=== PATIENT | female | born 1935 | race Caucasian/White ===

== ENCOUNTER 2022-07-02 17:26 | Emergency (ER) | payer MEDICARE, OTHER ==
[~2022-07-02] VITALS: Ht 167.6 cm; Wt 79.2 kg
[~2022-07-02 17:26] MED LIST: ASPIR 8181 MG PO; ATENOLOL25 MG PO; CALCIUM 600 +1 EA11 PO; CITALOPRAM HBR20 MG PO; FENOFIBRATE145 MG PO; HYDROCHLOROTHIA25 MG PO; HYDROCODON-ACE1 EA11 PO; OMEPRAZOLE20 M1 PO; OMEPRAZOLE40 MG PO; PRAVASTATIN SOD40 MG PO
--- OUTSIDE RECORDS SUMMARY | 2022-07-02 17:28 | XMS ---
PreManage Notification: JOAN MCINTOSH Security Tavern Keeper Events No recent Security Events currently on file CRITERIA MET - ALANNA CARE PROVIDERS -David- Dentist: Splicing Machine Operator Automatic [facility] PHONE: [phone] [facility] Current PHONE: Unknown Michelle has no Care Guidelines for this patient. Patricia VISIT COUNT (12 MO.) Lien Rios TOTAL 1 NOTE: Visits indicate total known visits. ED/UCC VISIT TRACKING (12 MO.) 07/02/2022 17:27 JOS Cruz OR TYPE: Emergency COMPLAINT: - VOMITING INPATIENT VISIT TRACKING (12 MO.) No inpatient visits to display in this time frame [email or web address]
[2022-07-02] MEDS ORDERED: AMITRIPTYLINE H10 MG PO (20:28)
[2022-07-02] MEDS ORDERED: MAGNESIUM OXID400 M1 PO (20:29)
[2022-07-02] MEDS ORDERED: MULTI VITAMIN1 EACH PO (20:29)
[2022-07-02] MEDS ORDERED: PRAVASTATIN SOD40 MG PO (20:30)
[2022-07-02] MEDS ORDERED: VITAMIN C500 M4 PO (20:30)
[2022-07-02] MEDS ORDERED: PEPCID20 MG PO (22:16)
--- NOTE | 2022-07-03 21:26 | EKG ---
[facility] [address] [place] [address] Signed Normal sinus rhythm Possible Left atrial enlargement Left axis deviation Left ventricular hypertrophy with QRS widening ( [place] product ) Anteroseptal infarct (cited on or before 02-MAR-2016) Abnormal ECG When compared with ECG of 02-MAR-2016 15:17, Questionable change in initial forces of Anterior leads Non-specific change in ST segment in Lateral leads QT has lengthened Confirmed by David Ortega MD () on 07/03/2022 9:25:47 PM Electronically Signed By: DAVID ORTEGA MD 07/03/222125 PATIENT NAME: JOAN MCINTOSH Electrocardiogram DATE OF : 39 PHYSICIAN: DAVID ORTEGA MD REPORT #: [id number] REPORT IS CONFIDENTIAL AND NOT TO BE RELEASED WITHOUT AUTHORIZATION
== END 2022-07-02 22:33 | disposition home or self-care (01) ==
LOC: ED 17:26
DX: K21.9 Gastro-esophageal reflux disease without esophagitis (principal); E86.0 Dehydration; K44.9 Diaphragmatic hernia without obstruction or gangrene; Z79.899 Other long term (current) drug therapy
CPT/HCPCS: 36415; 71045; 80053; 81001; 83690; 83880; 84484; 85025; 87088; 93005; 93010; 96374; 99284-25; J7121

== ENCOUNTER 2022-10-21 10:44 | Day surgery (SDC) | payer MEDICARE, OTHER ==
[~2022-10-21] VITALS: Ht 162.6 cm; Wt 82.0 kg
[~2022-10-21 10:44] MED LIST changes: +ABILIFY2 MG PO; +AMITRIPTYLINE H10 MG PO; +MAGNESIUM OXID400 M1 PO; +MULTI VITAMIN1 EACH PO; +ONDANSETRON ODT8 MG PO; +PEPCID20 MG PO; +VITAMIN C500 M4 PO
[2022-10-21 11:07] VITALS: BP 132/63
[2022-10-21] MEDS ORDERED: ALPRAZOLAM0.25 MG PO (11:13)
--- NOTE | 2022-10-21 12:09 | NUR ---
10/21/22 1208 Sheets,Leilani 1203 PT ARRIVED TO PACU ON 2L VIA NC, PT WAKES AND DENIES CONCERNS. PT EASILY FALLS BACK TO SLEEP. VSS.
[2022-10-21 12:38] VITALS: BP 124/70
--- NOTE | 2022-10-27 10:30 | OR ---
[facility] [address], [place] [address] Signed DATE OF OPERATION: 10/21/2022 SURGEON: Jo Caraballo MD PREOPERATIVE DIAGNOSIS: Upper abdominal pain, longstanding gastroesophageal reflux. POSTOPERATIVE DIAGNOSES: 1. Retained gastric contents. 2. Hiatal hernia without esophagitis. Otherwise normal-appearing stomach. No evidence of gastric outlet obstruction. PROCEDURE: Esophagogastroduodenoscopy with biopsy. ANESTHESIA: Intravenous sedation; fentanyl 100 mcg and Versed 2 mg. INDICATION: This 87-year-old white woman is a patient of Dr. Osborn. She was referred for upper endoscopy on the basis of long-standing reflux disease which recently has been poorly controlled. Clinical history suggests biliary disease and on that basis, I ordered a gallbladder ultrasound, which showed gallstones. Nevertheless, she is here to undergo upper endoscopy to confirm or refute a peptic source of her symptoms. The risk of bleeding, infection, and perforation were reviewed with her. She understands and wished to proceed. FINDINGS: There was food retained in the stomach. There was a hiatal hernia but there was no sign of gastric outlet obstruction. The duodenum was normal. There was no sign of ulceration. There was no evidence of esophagitis or Peterson's epithelium. The source of her gastric content retention is uncertain, possibly some level of gastroparesis, though she is not diabetic. DESCRIPTION OF PROCEDURE: The patient was brought to the endoscopy suite and placed in the lateral decubitus position, underwent topical lidocaine hypopharyngeal anesthesia. She was given intravenous sedation with all due care given her advanced age. A bite block was placed. An Olympus video upper endoscope was passed in the hypopharynx. The vocal cords were normal. Scope was advanced throughout the esophagus, which was normal. Scope passed Electronically Signed By: JO CARABALLO MD 10/27/22 1030 PATIENT NAME: JOAN MCINTOSH OPERATIVE REPORT DATE OF : 39 REPORT #: [id number] PHYSICIAN: JO CARABALLO MD PCP: PRAFUL OSBORN MD REPORT IS CONFIDENTIAL AND NOT TO BE RELEASED WITHOUT AUTHORIZATION [facility] [address], [place] [address] Signed into the stomach, which was insufflated with air with some retained food within the stomach. It was challenging to ultimately identify the pylorus, but it was identified and showed no sign of stricture, neoplasm or gastric outlet obstruction in any way. The duodenum was intubated and some mucosal hypertrophy was noted in the duodenal bulb. There was no sign of ulcer, this area was biopsied. Additional biopsies were also taken of the duodenum. The scope was withdrawn and biopsies taken of the proximal stomach on retroflexed view. She had a hiatal hernia. CLOtest biopsies were obtained as well. Scope was withdrawn to the distal esophagus where biopsies were obtained. The esophagus appeared normal. Further withdrawal allowed for removal of the scope. The patient was taken to recovery room in good condition. CONCLUDING DIAGNOSIS: Retained food in the stomach suggestive though not diagnostic of variable degree of gastric dysmotility. Hiatal hernia without associated esophagitis is noted. It is very likely that her actual symptoms of late are related to symptomatic gallstones rather than reflux related to hiatal hernia. PLAN: We will organize to see her back promptly and offer for consideration of cholecystectomy preferred by a laparoscopic approach. MD MURPHY Cruz/DARBY /[id number] cc: Dr. Osborn Copies: ~ Electronically Signed By: JO CARABALLO MD 10/27/22 1030 PATIENT NAME: JOAN MCINTOSH OPERATIVE REPORT DATE OF : 39 REPORT #: [id number] PHYSICIAN: JO CARABALLO MD PCP: PRAFUL OSBORN MD REPORT IS CONFIDENTIAL AND NOT TO BE RELEASED WITHOUT AUTHORIZATION
== END 2022-10-21 12:53 | disposition home or self-care (01) ==
LOC: OPS 10:44 → DS 10:51 → OPS 12:00 → DS 12:00 → OPS 12:53
PROVIDERS: ATTEND Surgery
PROC: 0DB68ZX Excision of Stomach, Via Natural or Artificial Opening Endoscopic, Diagnostic (ICD-10-PCS; 2022-10-21)
PROC: 0DB38ZX Excision of Lower Esophagus, Via Natural or Artificial Opening Endoscopic, Diagnostic (ICD-10-PCS; 2022-10-21)
PROC: 0DB98ZX Excision of Duodenum, Via Natural or Artificial Opening Endoscopic, Diagnostic (ICD-10-PCS; principal; 2022-10-21 12:00)
DX: K21.9 Gastro-esophageal reflux disease without esophagitis (principal); K44.9 Diaphragmatic hernia without obstruction or gangrene; K29.50 Unspecified chronic gastritis without bleeding; F32.A Depression, unspecified; R63.4 Abnormal weight loss; Z79.899 Other long term (current) drug therapy
CPT/HCPCS: 88305; 99153; G0500; J0690; J2250; J3010

== ENCOUNTER 2022-11-09 05:37 | Day surgery (SDC) | payer MEDICARE, OTHER ==
[2022-11-04 14:19] VITALS: BP 131/80
[~2022-11-09] VITALS: Ht 162.6 cm; Wt 81.8 kg
[~2022-11-09 05:37] MED LIST changes: +ALPRAZOLAM0.25 MG PO; +FAMOTIDINE20 MG PO
[2022-11-09 05:59] VITALS: BP 122/73
--- NOTE | 2022-11-09 09:43 | NUR ---
11/09/22 0943 Lila Wilburn 0936 PT TO PACU ORAL AIRWAY IN PLACE. BREATHS REGULAR AND UNLABORED. O2 VIA MASK AT 6L. FOGGING NOTED IN MASK.
[2022-11-09] MEDS ORDERED: IBUPROFEN600 MG PO (09:48)
[2022-11-09] MEDS ORDERED: OXYCODON-ACETA1 EAC2 PO (09:48)
[2022-11-09] MEDS ORDERED: ACETAMINOPHEN500 MG PO (09:49)
[2022-11-09 10:35] VITALS: BP 145/57
--- NOTE | 2022-11-09 10:35 | NUR ---
PT ARRIVES FROM PACU UNIT VIA STRETCHER. PT IS GRIMACING IN PAIN AT THIS TIME W/REPORT OF PAIN 6/10, W/TOLERABLE LEVEL 4/10. X5 LAP SITES HAVE SMALL AMOUNT OF SS DRAINAGE. PT IS A&O X4 AND ASKS QUESTIONS APPROPRIATELY. PT GIVEN ICE WATER, APPLESAUCE, AND CRACKERS, TOLERATING W/OUT DIFFICULTY. PRN PAIN MED GIVEN AT THIS TIME (SEE EMAR). CALL LIGHT WITHIN REACH, NO FURTHER NEEDS AT THIS TIME.
[2022-11-09 11:39] VITALS: BP 152/64
--- NOTE | 2022-11-09 11:40 | NUR ---
IN PT ROOM FOR VS AND ASSESSMENT. PT REPORTS PAIN HAS IMPROVED TO TOLERABLE LEVEL OF 4/10 AND APPEARS MUCH MORE COMFORTABLE AT THIS TIME. PT EXPRESSES NEED TO URINE VOID, PT SITS AT EDGE OF BED W/MINIMAL DIZZINESS. PT STANDBY ASSIST W/PERSONAL CANE TO BATHROOM. PT REPORTS NO NAUSEA AND MINIMAL DIZZINESS W/AMBULATION, GAIT IS STEADY AT THIS TIME. 250 ML OUTPUT OF CLEAR/YELLOW URINE. PT NOW BACK IN BED AND REPORTS DESIRE TO REST FOR A LITTLE LONGER, ALL DISCHARGE CRITERIA MET AT THIS TIME. NO NEW SIGNS OF BLEEDING AT THIS TIME POST AMBULATION. CALL LIGHT WITHIN REACH, NO FURTHER NEEDS AT THIS TIME.
--- NOTE | 2022-11-09 12:30 | NUR ---
IN PT ROOM FOR ASSESSMENT AND VS. PT STATES SHE IS UNABLE TO FALL ASLEEP SO "SHE MIGHT WELL GO HOME". PT STATES PAIN REMAINS TOLERABLE AT THIS TIME. NO NEW BLEEDING OR DRAINAGE, OLD SHADOWING ON DRESSING. PT REPORTS MILD DIZZINESS AND NO NAUSEA AT THIS TIME. DAUGHTER AT BEDSIDE, VERIFIED SHE RECEIVED PHONE CALL AFTER SURGERY FROM RASHMI MARS. THIS RN ASSISTS PT W/GETTING DRESSED. PT DAUGHTER IN HALLWAY, STATES SHE DOES NOT NEED TO BE PRESENT FOR DISCHARGE EDUCATION.
--- NOTE | 2022-11-09 12:45 | NUR ---
THIS RN IN ROOM FOR DISCHARGE EDUCATION. PT REPORTS NO FURTHER QUESTIONS AT THIS TIME AND STATES VERBAL UNDERSTANDING. IV DC'ED, WNL, GAUZE/COBAN IN PLACE. PT ESCORTED OFF OF UNIT VIA THIS RN VIA WC TO PASSENGER SIDE OF DAUGHTER'S VEHICLE. ALL BELONGINGS IN PT POSSESSION AT THIS TIME. PT STATES NO FURTHER NEEDS AT THIS TIME.
[2022-11-09 13:08] VITALS: BP 148/61
--- NOTE | 2022-11-09 13:24 | NUR ---
PT ACCOMPANIED BY DAUGHTER. REQUESTED PRAYER BEFORE SURGERY. PRAYED FOR SUCCESSFUL PROCEDURE AND AWARENESS OF DIVINE PRESENCE.
--- NOTE | 2022-11-09 14:30 | NUR ---
PT CALLED REGARDING PAIN MED PRESCRIPTION. PT STATES PHARMACY REFUSES TO FILL. ADVISED PT TO CONTACT RASHMI MARS'S OFFICE. PT STATES VERBAL UNDERSTANDING.
--- NOTE | 2022-11-09 15:26 | NUR ---
LULU FROM RASHMI MD OFFICE CALLED REGARDING PAIN MED PRESCRIPTION AND REQUESTED DETAILS REGARDING PAIN MED PRESCRIBED. INFORMATION FOUND PER EMAR.
--- NOTE | 2022-11-10 09:47 | OR ---
[facility] [address], [place] [address] Signed DATE OF OPERATION: 11/09/2022 SURGEON: Jo Caraballo MD PREOPERATIVE DIAGNOSIS: Chronic calculous cholecystitis. POSTOPERATIVE DIAGNOSIS: Chronic calculous cholecystitis. PROCEDURES: 1. Laparoscopic cholecystectomy with intraoperative cholangiogram. 2. Surgeon-directed fluoroscopy. ANESTHESIA: General endotracheal, Floridalma Dom HOBBING MACHINE OPERATOR and local 10 mL of 0.25% Marcaine with epinephrine. INDICATIONS FOR THE PROCEDURE: This 87-year-old white woman is a patient of Dr. Nell Osborn. She was referred for consideration of upper endoscopy on the basis of peptic symptoms that did not seem to improve with PPI medication. She was clinically suspected at that time of possibly having biliary disease. A gallbladder ultrasound was performed, which showed multiple gallstones. She did undergo upper endoscopy, which did not show any sign of ulceration or did show hiatal hernia. She does have symptoms typical of biliary colic including right subcostal postprandial pain, epigastric pain, and intolerance of fatty food from time to time. She is admitted at this time to undergo cholecystectomy preferred by laparoscopic approach, understanding the risk of bleeding, infection, bile duct injury, and of course failure to cure her symptoms. Understanding all this, she wished to proceed. FINDINGS: The gallbladder was quite distended. It was not acutely inflamed. There was redundant left lateral segment of liver, which did obscure the view from time to time requiring an additional trocar and a fan retractor to provide good exposure. Once excised, the gallbladder was noted to have multiple dark multifaceted gallstones. There was no sign of neoplasm of mucosa. Cholangiogram was normal. The liver was otherwise normal. DESCRIPTION OF PROCEDURE: The patient was brought to the operating room, given a general endotracheal anesthetic. Electronically Signed By: JO CARABALLO MD 11/10/22 0947 PATIENT NAME: JOAN MCINTOSH OPERATIVE REPORT DATE OF : 39 REPORT #: [id number] PHYSICIAN: JO CARABALLO MD PCP: NELL OSBORN MD REPORT IS CONFIDENTIAL AND NOT TO BE RELEASED WITHOUT AUTHORIZATION [facility] [address], [place] [address] Signed Preoperative antibiotic Ancef was given. Sequential compression device stockings used and heparin subcutaneously administered. The abdomen was prepared with chlorhexidine solution and draped sterilely. An infraumbilical incision was made and using an open Neto cannula technique, pneumoperitoneum achieved to a level of 14 mmHg of carbon dioxide gas. Intra-abdominal inspection showed no sign of ascites or carcinomatosis. The liver appeared normal. The gallbladder was quite distended, that was not acutely inflamed. Three additional trocars were placed in usual configuration in the subxiphoid, right midclavicular, and right anterior axillary line. The gallbladder was grasped and elevated cephalad allowing for a very floppy and redundant left lateral segment of liver to obscure the view. Efforts were made to adjust and allow for dissection of the triangle of Calot. Omental adhesions were taken down with electrocautery. Ultimately, it became clear that additional exposure of the infundibulum would be required given the problematic liver segment. An epigastric 5 mm port was placed under direct visualization allowing for placement of a fan retractor. This allowed for good visualization of the infundibulum. Using blunt electrocautery dissection, the triangle of Calot was dissected free more fully identifying well the cystic duct and the dominant cystic artery. Cystic artery was doubly clipped and divided leaving only the cystic duct. It too was clipped at the gallbladder cystic duct junction and a transverse choledochotomy made in the cystic duct allowing for egress of clear bile. Using Torres type cholangiocatheter, intraoperative cholangiography was undertaken with surgeon-directed fluoroscopy. Flow into the cystic duct was quite obvious and into the common duct with emptying into the duodenum. Retrograde filling took a bit more contrast and once the common hepatic duct was more fully visualized, cholangiography was discontinued. The catheter was ultimately removed. The cystic duct was triply clipped and divided. The gallbladder was then dissected free in a retrograde fashion using electrocautery. Gallbladder was extracted through the infraumbilical port site without problem, opened on the back table and found to have multiple dark multifaceted gallstones, all about a centimeter in size. Irrigation was undertaken in the subhepatic space. Care was taken to provide good hemostasis of the liver bed. Excess irrigation of fluid was suctioned free. Examination of the right colon showed no sign of abnormality. The trocars removed under direct visualization showing no sign of bleeding. The infraumbilical fascial incision was reapproximated with interrupted 0-Vicryl suture. A 10 mL of 0.25% Marcaine with epinephrine was injected locally. The skin was then closed with interrupted 3-0 Vicryl. Steri-Strips were applied. The patient was ultimately extubated, transferred to the recovery room in good condition, having suffered no complications. Sponge, needle, and instrument counts reported correct x3. Electronically Signed By: JO CARABALLO MD 11/10/22 0947 PATIENT NAME: JOAN MCINTOSH OPERATIVE REPORT DATE OF : 39 REPORT #: [id number] PHYSICIAN: JO CARABALLO MD PCP: NELL OSBORN MD REPORT IS CONFIDENTIAL AND NOT TO BE RELEASED WITHOUT AUTHORIZATION [address] [place] [address] Signed MD MURPHY Cruz/DARBY /[id number] Copies: ~ Electronically Signed By: JO CARABALLO MD 11/10/22 0947 PATIENT NAME: JOAN MCINTOSHBETH OPERATIVE REPORT DATE OF : 39 REPORT #: [id number] PHYSICIAN: JO CARABALLO MD PCP: NELL OSBORN MD REPORT IS CONFIDENTIAL AND NOT TO BE RELEASED WITHOUT AUTHORIZATION
--- NOTE | 2022-11-11 14:47 | PATH ---
[facility] [address] [facility] [place], [place] [address] Signed SPECIMEN(S): A GALLBLADDER AND STONES SPECIMEN SOURCE: A. GALLBLADDER AND STONES CLINICAL HISTORY: Right upper quadrant pain. FINAL PATHOLOGIC DIAGNOSIS: Gallbladder and stones: - Chronic calculous cholecystitis. JVR:rach:C2NR MICROSCOPIC EXAMINATION: Histologic sections of all submitted blocks are examined by light microscopy. These findings, together with the gross examination, support the pathologic diagnosis. GROSS DESCRIPTION: The specimen, labeled and designated "Nabeel, gallbladder," is received in formalin and consists of Specimen: Previously opened gallbladder. Dimensions: 10.0 x 4.5 cm. Serosa: Violaceous, focally congested. Cystic Duct: Inked, unobstructed. Calculi: Numerous dark green, faceted gallstones within the container that range in size from 0.3 to 0.5 cm in greatest dimension. Mucosa: Yellow-terry and trabeculated. Wall thickness: 0.3 cm. Lymph node: No pericystic lymph nodes are grossly identified. Additional: None. Service Or Work Dispatcher Chief sections are submitted in (A1). JS (under the direct supervision of a pathologist) The Gross Description was prepared using a voice recognition system. The report was reviewed for accuracy; however, sound-alike word errors, addition and/or deletions may occur. If there is any question about this report, please contact Client Services. PERFORMING LABORATORY: Technical component was performed by [facility] [employer], [address] [place] [id number] (CLIA# [id number]). Professional interpretation was PATIENT NAME: JOAN MCINTOSH PATHOLOGY DATE OF : 39 REPORT #: [id number] PHYSICIAN: CORAL PATHOLOGY PCP: PRAFUL OSBORN MD REPORT IS CONFIDENTIAL AND NOT TO BE RELEASED WITHOUT AUTHORIZATION [address], [place] [address] Signed performed by [facility] [address] [place] [address] (CLIA#: [id number]). Diagnostician: Wyatt Mckeon MD Pathologist Electronically Signed 11/11/2022 Copies: ~ PATIENT NAME: JOAN MCINTOSH PATHOLOGY DATE OF : 39 REPORT #: [id number] PHYSICIAN: CORAL PATHOLOGY PCP: PRAFUL OSBORN MD REPORT IS CONFIDENTIAL AND NOT TO BE RELEASED WITHOUT AUTHORIZATION
== END 2022-11-09 13:05 | disposition home or self-care (01) ==
LOC: DS 05:37
PROVIDERS: ATTEND Surgery
PROC: BF121ZZ Fluoroscopy of Gallbladder using Low Osmolar Contrast (ICD-10-PCS; 2022-11-09)
PROC: 0FT44ZZ Resection of Gallbladder, Percutaneous Endoscopic Approach (ICD-10-PCS; principal; 2022-11-09 07:30)
DX: K80.10 Calculus of gallbladder with chronic cholecystitis without obstruction (principal); K21.9 Gastro-esophageal reflux disease without esophagitis; F32.A Depression, unspecified; R63.4 Abnormal weight loss; Z68.30 Body mass index [BMI] 30.0-30.9, adult
CPT/HCPCS: 00790; 74300; 88304; J0131; J0690; J1100; J1644; J1885; J2405; J2704; J3010; J3490; J7121; Q9967

== ENCOUNTER 2024-06-27 11:27 | Emergency (ER) | payer MEDICARE, OTHER ==
[~2024-06-27] VITALS: Ht 162.6 cm; Wt 96.8 kg
[~2024-06-27 11:27] MED LIST changes: +ACETAMINOPHEN500 MG PO; +IBUPROFEN600 MG PO; +OXYCODON-ACETA1 EAC2 PO
[2024-06-27] MEDS ORDERED: CYCLOBENZAPRINE10 MG (11:45)
[2024-06-27] MEDS ORDERED: ondansetron HCL 4 MG/2 ML VIAL IV ONE ×2 (12:00→12:15)
[2024-06-27 12:15] LABS: BASOPHILS 0.2 % (0-2); EOSINOPHILS 1.7 % (0-6); HEMATOCRIT 42.1 % (35.0-50.0); HEMOGLOBIN 14.5 g/dL (12.0-18.0); LYMPHOCYTES 12.9 % (24-44); MCH 35.2 (27-36); MCHC 34.5 g/dl (30-36); MCV 101.9 fl (81-99); MONOCYTES 8.3 % (0-12); NEUTROPHILS 76.9 % (39-80); PLATELET COUNT 219 K/uL (140-440); RBC 4.14 M/ul (4.3-5.7)
[2024-06-27] MEDS ORDERED: HYDROmorphone HCL 1 MG/ML SYR IV PRN (12:15)
[2024-06-27] MEDS ORDERED: SODIUM CHLORIDE 0.9% 1,000 ML IV PRN (12:15)
[2024-06-27 12:29] LABS: ALBUMIN 4.2 g/dL (3.4-5.0); ALBUMIN/GLOBULIN RATIO 1.4 (1.1-2.4); ANION GAP 16.1 (7-21); BILIRUBIN, TOTAL 0.5 mg/dL (0.2-1.0); BUN/CREATININE RATIO 21.37 (6.0-28.6); CALCIUM 10.3 mg/dL (8.5-10.1); CREATININE, SERUM 1.31 mg/dL (0.55-1.02); POTASSIUM 4.1 mmol/L (3.5-5.1); PROTEIN, TOTAL 7.2 g/dL (6.4-8.2)
[2024-06-27 14:22] LABS: BILIRUBIN, URINE POSITIVE (negative); BLOOD/HGB, URINE NEGATIVE (Negative); KETONE, URINE TRACE (Negative); LEUK ESTERASE, URINE NEGATIVE (negative); NITRITE, URINE NEGATIVE (negative)
[2024-06-27 18:30] VITALS: BP 128/76
== END 2024-06-27 19:15 | disposition short-term general hospital (02) ==
LOC: ED 11:27
PROVIDERS: Emergency Medicine
DX: K44.9 Diaphragmatic hernia without obstruction or gangrene (principal); I10 Essential (primary) hypertension; Z79.899 Other long term (current) drug therapy
CPT/HCPCS: 36415; 74177; 80053; 81003; 83605; 83690; 85025; 96361; 96375; 96376; 99285-25; J1171; J2405; J7030; Q9967

== ENCOUNTER 2024-08-07 13:05 | Inpatient (IN) | payer MEDICARE, OTHER ==
[~2024-08-07] VITALS: Ht 162.6 cm; Wt 98.8 kg
[~2024-08-07 13:05] MED LIST changes: +CYCLOBENZAPRINE10 MG
[2024-08-07 13:18] LABS: BASOPHILS 0.4 % (0-2); EOSINOPHILS 1.3 % (0-6); HEMATOCRIT 35.5 % (35.0-50.0); LYMPHOCYTES 15.3 % (24-44); MCH 33.4 (27-36); MCHC 33.8 g/dl (30-36); MONOCYTES 11.1 % (0-12); NEUTROPHILS 71.9 % (39-80); PLATELET COUNT 378 K/uL (140-440); RBC 3.58 M/ul (4.3-5.7); RDW 15.1 (10.5-15.0)
[2024-08-07] MEDS ORDERED: ELIQUIS5 MG PO (13:25)
[2024-08-07] MEDS ORDERED: METOPROLOL TART25 MG PO (13:25)
[2024-08-07 13:37] LABS: ALBUMIN 2.8 g/dL (3.4-5.0); ALBUMIN/GLOBULIN RATIO 0.78 (1.1-2.4); ANION GAP 11.6 (7-21); BILIRUBIN, TOTAL 0.4 mg/dL (0.2-1.0); BUN/CREATININE RATIO 10.71 (6.0-28.6); CALCIUM 9.1 mg/dL (8.5-10.1); CREATININE, SERUM 1.12 mg/dL (0.55-1.02); MAGNESIUM 1.4 mg/dL (1.8-2.4); POTASSIUM 3.6 mmol/L (3.5-5.1); PROTEIN, TOTAL 6.4 g/dL (6.4-8.2)
[2024-08-07] MEDS ORDERED: MAGNESIUM SULFATE 2 GM/50 ML BAG IV ONE (14:15)
[2024-08-07] MEDS ORDERED: METOPROLOL TARTRATE 50 MG TAB PO ONE (14:30)
[2024-08-07] MEDS ORDERED: METOPROLOL TARTRATE 5 MG/5 ML VIAL IV ONE (14:30)
[2024-08-07] MEDS ORDERED: POTASSIUM CHLO20 ME2 PO (14:43)
[2024-08-07] MEDS ORDERED: LASIX40 MG PO (14:43)
[2024-08-07] MEDS ORDERED: FUROSEMIDE 20 MG/2 ML VIAL IV ONE (15:00)
[2024-08-07] MEDS ORDERED: ondansetron HCL 4 MG/2 ML VIAL IV PRN (16:15)
[2024-08-07] MEDS ORDERED: ACETAMINOPHEN 325 MG TAB PO PRN (16:15)
--- NOTE | 2024-08-07 17:09 | NUR ---
this rn to er to get report from staff, dr solomon in with pt for assessment, pt rle greater edema then left +2, pt alert and oriented, forgetful - granddaughter rosalia at side - she is in home sales service professional for pt. pt is full code - reports this am was just not feeling well - drank an ensure but did not take her am medications. hr is 110 and pt is sob with exertion, room air. sl iv left ac, inc urine with redness noted to george area and old attends from home wet and old powder noted. pt moved to room 129 ccu - slide transfer to bed, bed bath done, george area cleaned, abd inc from last mo surgery wnl intact and healing well. call light in reach - pt has glasses and phone, 1 ring. records requested from dr. orozco and reny bradshaw pcp. pt denies pain or needs.
[2024-08-07 17:30] VITALS: BP 114/78
--- NOTE | 2024-08-07 18:12 | NUR ---
attempt to call dr to ask about soft diet that pt reports she is ordered, mg replacement that is chronic, nystatin powder for groin area and eliquis or metoprolol for hr has not been given today. pt reports not taking home meds. discussed with procurement intern and accounts payable supervisor. records are here from pcp - last visit august 03. pt is eating soft dinner well with no complaints and family in room.
[2024-08-07 19:00] VITALS: BP 105/69
[2024-08-07] MEDS ORDERED: POTASSIUM BICARBONATE/CIT AC 20 MEQ TABEF PO ONE (19:30)
[2024-08-07 20:00] VITALS: BP 98/65
--- NOTE | 2024-08-07 20:41 | NUR ---
ASSUMPTION OF CARE NOTE Upon initial assessment, pt is alert and oriented x4, very pleasant. Denies pain. AFIB on monitor, HR 100's-110's. BP stable with MAP 77. Afebrile. Dr. Martin phoned this RN to follow up on pt. This RN informed MD that pt's last potassium level was 3.6 prior to receiving 20mg of Lasix in ED and has not been replaced. New order for 40 mEQ KCL x1 PO per MD. Pt is also receiving 25mg Lopressor PO. Minitor for hypotension and give Albumin x1 IV if MAP < 65, per MD. At this time, pt exhibits no s/s of acute distress. She is resting comfortably in bed with eyes closed, even chest rise and fall.
[2024-08-07 21:00] VITALS: BP 93/60
[2024-08-07] MEDS ORDERED: APIXABAN 5 MG TAB PO SCH (21:00)
[2024-08-07] MEDS ORDERED: METOPROLOL TARTRATE 25 MG TAB PO SCH (21:00)
[2024-08-07] MEDS ORDERED: MELATONIN 3 MG TAB PO PRN (21:00)
[2024-08-07] MEDS ORDERED: MICONAZOLE NITRATE 1 EA BTL TOP SCH (21:00)
[2024-08-07 22:00] VITALS: BP 95/60
[2024-08-07 23:00] VITALS: BP 98/74
[2024-08-08] VITALS (15 sets, daily range): BP systolic 87–131; BP diastolic 54–70
--- NOTE | 2024-08-08 00:19 | NUR ---
RN NOTE Pt resting comfortably in bed with eyes closed. Even chest rise and fall observed. AFIB, HR 90's - 100's. BP stable. Needs met. No s/s of acute distress at this time.
--- NOTE | 2024-08-08 04:33 | NUR ---
RN NOTE Pt in bed, resting comfortably with eyes closed. Denies pain when awakened. Easy to arouse. Vitally stable. AFIB HR 90's-100's. Current BP 101/64. Afebrile. Pt's needs met. Call light within reach. No s/s of acute distress at this time.
[2024-08-08 05:17] LABS: BASOPHILS 0.5 % (0-2); EOSINOPHILS 3.3 % (0-6); HEMATOCRIT 31.8 % (35.0-50.0); HEMOGLOBIN 10.9 g/dL (12.0-18.0); LYMPHOCYTES 23.4 % (24-44); MCH 33.5 (27-36); MCHC 34.3 g/dl (30-36); MCV 97.7 fl (81-99); MONOCYTES 13.4 % (0-12); NEUTROPHILS 59.4 % (39-80); PLATELET COUNT 295 K/uL (140-440); RBC 3.26 M/ul (4.3-5.7); RDW 14.9 (10.5-15.0)
[2024-08-08 05:25] LABS: ANION GAP 9.8 (7-21); BUN/CREATININE RATIO 15.95 (6.0-28.6); CALCIUM 8.7 mg/dL (8.5-10.1); CREATININE, SERUM 0.94 mg/dL (0.55-1.02); MAGNESIUM 1.7 mg/dL (1.8-2.4); POTASSIUM 3.8 mmol/L (3.5-5.1)
[2024-08-08] MEDS ORDERED: MAGNESIUM SULFATE 2 GM/50 ML BAG IV ONE (06:45)
--- NOTE | 2024-08-08 08:07 | NUR ---
call to dr to update that pt converted to sr at 7 am and is 70 hr for last hr, pt sleeping resp 25, nad.
[2024-08-08] MEDS ORDERED: FUROSEMIDE 20 MG/2 ML VIAL IV SCH (09:00)
--- NOTE | 2024-08-08 10:05 | NUR ---
PATIENT ALERT AND ORIENTED IN BED. STATES SHE LIVES IN HOUSE WITH 6 STEPS WITH GRANDDAUGHTER, JODY. STATES SHE HAS A WALKER, MULTIPLE CANES, SHOWER CHAIR AND A WHEELCHAIR SHE HAS BORROWED, BUT HAS NOT USED. STATES SHE DOES NOT DRIVE, FAMILY ASSISTS WITH TRANSPORTATION. HAS NO FINANCIAL CONCERNS. PATIENT DOES EXHIBIT WEAKNESS PER PT/OT. DISCUSSED THIS WITH PATIENT. STATES SHE WAS DISCHARGED 07/24/24 FROM [facility] AFTER A 20 DAY STAY. SHE IS OPEN TO HOME HEALTH IF NEEDED. ALSO DISCUSSED POSSIBILITY OF SKILLED CARE IF NEEDED. SHE IS OPEN TO SKILLED CARE WELL. NO KNOWN CM NEEDS AT THIS TIME. CURRENTLY PLANNING TO DC TO HOME VS SKILLED CARE.
--- NOTE | 2024-08-08 10:14 | NUR ---
harman cardiac nurse in with
--- NOTE | 2024-08-08 10:37 | NUR ---
Education completed on new on set of CHF. Reviewed the booklet Get with the guidlines. Heart Failure. Pt was given time to ask question. At the completion of education, pt had no furthure questions. Pt is aware the cardiac nurse will return to room to answer any other questions. Pt verbalized understanding of CHF education.
--- NOTE | 2024-08-08 11:11 | NUR ---
PT UP TO CHAIR WITH PT USING FWW, KATHRYN NOTED THAT SHE WAS ORTHOSTATIC HYPOTENSION. PT RECLINED IN CHAIR WITH CALL LIGHT FOR A REST. VISIBLE TO RN AT DESK.
--- NOTE | 2024-08-08 11:30 | NUR ---
VISITED DURING SPIRITUAL CARE ROUNDS. PT IN OVERALL GOOD SPIRITS, NO IMMEDIATE NEEDS. PIVOT MAKER PROVIDED SUPPORTIVE PRESENCE, HOSPITALITY, PRAYER, FACILITATED INTERACTION WITH THERAPY ANIMAL.
[2024-08-08] MEDS ORDERED: MIDODRINE HCL 5 MG TAB PO SCH (11:45)
[2024-08-08] MEDS ORDERED: PHARMACY RENAL DOSE ADJUSTMENT 1 DOSE MISC PO SCH (12:00)
--- NOTE | 2024-08-08 12:20 | NUR ---
pt up in chair eating. denies needs, call light in reach.
--- NOTE | 2024-08-08 14:30 | NUR ---
pt up to bsc with rn and fww, bm and void. bed bath and shower cap provided and done with rn, oral care done. pt sitting up in chair with call light. denies needs. new gown. powder to folds.
--- NOTE | 2024-08-08 14:37 | EKG ---
[facility] [address] [facility] [place] [address] Signed Atrial fibrillation with rapid ventricular response Left axis deviation Minimal voltage criteria for LVH, may be normal variant ( Ray product ) Anteroseptal infarct (cited on or before 02-MAR-2016) Abnormal ECG When compared with ECG of 02-JUL-2022 20:32, Atrial fibrillation has replaced Sinus rhythm Questionable change in initial forces of Septal leads QT has shortened Confirmed by Samuel Lora DO ([id number]) on 08/08/2024 2:36:55 PM Electronically Signed By: SAMUEL LORA DO 08/08/24 1437 PATIENT NAME: JOAN MCINTOSH Electrocardiogram DATE OF : 39 PHYSICIAN: SAMUEL LORA DO REPORT #: [id number] REPORT IS CONFIDENTIAL AND NOT TO BE RELEASED WITHOUT AUTHORIZATION
[2024-08-08] MEDS ORDERED: CULTURELLE CAP1 EAC1 PO (15:41)
[2024-08-08] MEDS ORDERED: ACETAMINOPHEN500 M1 PO (15:42)
[2024-08-08] MEDS ORDERED: FEROSUL325 MG PO (16:23)
[2024-08-08] MEDS ORDERED: PRAVASTATIN SOD40 MG PO (16:24)
[2024-08-08] MEDS ORDERED: IPRAT-ALBUT 0.5-3 ML INH (16:27)
--- NOTE | 2024-08-08 19:09 | NUR ---
PT UP IN CHAIR - ATE DINNER WELL - DENIES NEED TO GET UP TO RESTROOM ATTENDS ON. CALL LIGHT IN REACH - PT WAS HAPPY WITH VISIT EARLIER FROM HER SON. BP 116/74 (84). ROOM AIR, TALKING ON HER PHONE AND WATCHING TV.
--- NOTE | 2024-08-08 20:27 | NUR ---
ASSUMPTION OF CARE NOTE Upon initial assessment, pt is alert and oriented, pleasant, cooperative. Denies pain. NSR on the monitor. BP stable at 112/70 (MAP 81). Pt sitting in recliner watching tv. Requested to used bedside commode and go to bed. Pt used BSC with 1PA, tolerated fairly well. Pt appeared short of breath. When asked by this RN, pt first denied, but then confirmed that "maybe" she was a little short of breath. However, she recoved quickly. SPO2 > 93% on room air maintained. Pt took night meds without difficulty. Call light within reach. Needs met at this time.
[2024-08-09] VITALS (19 sets, daily range): BP systolic 85–123; BP diastolic 49–78
--- NOTE | 2024-08-09 03:05 | NUR ---
RN NOTE Pt in bed resting comfortably with eyes closed. Even chest rise and fall observed. Pt desatting to 80's during sleep with short periods of apnea. Pt recovers quickly when awakened. 2L O2 via NC applied. Pt SPO2 now 98%. Pt denies pain and shortness of breath. No s/s of acute distress.
[2024-08-09 05:18] LABS: BASOPHILS 0.5 % (0-2); HEMOGLOBIN 10.3 g/dL (12.0-18.0); LYMPHOCYTES 24.4 % (24-44); MCH 33.6 (27-36); MCHC 34.2 g/dl (30-36); MCV 98.2 fl (81-99); MONOCYTES 13.9 % (0-12); NEUTROPHILS 54.2 % (39-80); PLATELET COUNT 263 K/uL (140-440); RBC 3.05 M/ul (4.3-5.7); RDW 15.7 (10.5-15.0)
--- NOTE | 2024-08-09 05:25 | NUR ---
SHIFT SUMMARY Pt had an overall good night. Vitals stable throughout the night. 2L O2 for sleep d/t desaturation/periods of apnea. Pt denies pain this morning. Needs are met. No s/s of acute distress.
[2024-08-09 05:27] LABS: ANION GAP 6.7 (7-21); BUN/CREATININE RATIO 17.02 (6.0-28.6); CALCIUM 8.7 mg/dL (8.5-10.1); CREATININE, SERUM 0.94 mg/dL (0.55-1.02); POTASSIUM 3.7 mmol/L (3.5-5.1)
--- NOTE | 2024-08-09 08:06 | NUR ---
MED REC COMPLETE
--- NOTE | 2024-08-09 08:12 | NUR ---
PATIENT IN CHAIR AT THIS TIME. THIS PROJECT SUPERINTENDENT GAVE PATIENT WARM WASHCLOTH FOR FACE, THIS PROJECT SUPERINTENDENT ALSO ASSISTED PATIENT TO BEDSIDE COMMODE AND THEN TO CHAIR. PATIENT DID NOT VOID. CALL LIGHT WITHIN REACH, NO FURTHER NEEDS AT THIS TIME.
--- NOTE | 2024-08-09 08:30 | NUR ---
dr notified that pt hr converted to a fib between 7-8 am this day. pt is sitting up in chair and denes symptoms. was able to eat meal with no nausea or dizzyness. am meds taken and pt has call light.
--- NOTE | 2024-08-09 09:31 | NUR ---
PATIENT IN CHAIR AT THIS TIME. THIS DRAMA TEACHER ASSISTED PATIENT WITH BED BATH. THIS DRAMA TEACHER PROVIDED PATIENT WITH FRESH GOWN AND NEW SOCKS. PATIENT STATED THAT SHE DID NOT WANT TO DO SHAMPOO CAP BUT WANTED THE BED BATH WIPES. CALL LIGHT WITHIN REACH, NO FURTHER NEEDS AT THIS TIME.
--- NOTE | 2024-08-09 10:29 | NUR ---
dr aware of pt convert to sr at 920 am, pt worked with pt and was orthostatic and is now sitting in chair talking to dr. ibarra needs at this time, call light in reach.
--- NOTE | 2024-08-09 10:38 | NUR ---
PATIENT IN CHAIR AT THIS TIME. THIS CIRCUIT DESIGN ENGINEER CHANGED LINENS. CALL LIGHT WITHIN REACH, NO FURTHER NEEDS AT THIS TIME.
--- NOTE | 2024-08-09 11:14 | NUR ---
VISITED DURING SPIRITUAL CARE ROUNDS. PT APPEARED TO BE SLEEPING. DID NOT DISTURB. PROVIDED PRAYER.
--- NOTE | 2024-08-09 12:23 | NUR ---
PATIENT IN CHAIR AT THIS TIME. THIS TIRE MOLD ENGRAVER PLACED PATIENTS PUREWICK AT 1223. CALL LIGHT WITHIN REACH, NO FURTHER NEEDS AT THIS TIME.
[2024-08-09] MEDS ORDERED: LACTATED RINGER'S 1,000 ML IV ONE (13:00)
--- NOTE | 2024-08-09 13:07 | NUR ---
new order for lr bolus, purewick in place - pt up in chair watching tv, denies needs, call light in reach.
--- NOTE | 2024-08-09 13:27 | NUR ---
ALERT AND ORIENTED IN RECLINER. INFORMED PATIENT PT IS CURRENTLY RECOMMENDING POTENTIAL NEED FOR SNF. PATIENT STATE SHE DOES NOT WANT TO RETURN TO A SKILLED FACILITY BECAUSE SHE JUST LEFT. STATES SHE PREFERS HOME WITH HOME HEALTH. PATIENT CHOICES PROVIDED, STATES SHE WAS PREVIOUSLY SET UP WITH [facility] AND WOULD LIKE TO USE THEIR SERVICES. DENIES OTHER CM NEEDS AT THIS TIME.
--- NOTE | 2024-08-09 13:40 | NUR ---
RN UPDATED DR - BOLUS COMPLETE, PT VOIDING USING PUREWICK SITTING UP IN CHAIR. PT IS HR 75 AND BP 117/60. START LR @100. PT DENIES NEEDS, CALL LIGHT IN REACH.
[2024-08-09] MEDS ORDERED: LACTATED RINGER'S 1,000 ML IV SCH ×2 (13:45)
--- NOTE | 2024-08-09 17:16 | NUR ---
PATIENT IN CHAIR AT THIS TIME. MARINE RAILWAY OPERATOR ASSISTED PATIENT TO BEDSIDE COMMODE AND THEN BACK TO CHAIR. PATIENT HAD NO VOIDINGS IN BEDSIDE COMMODE. THIS MARINE RAILWAY OPERATOR PLACED NEW PUREWICK AT 1700. CALL LIGHT WITHIN REACH, NO FURTHER NEEDS.
--- NOTE | 2024-08-09 17:28 | NUR ---
CALL TO DR CLARK - STATUS UPDATE PT HR 117 AND AFIB, PT UP IN CHAIR EATING AND HAS ATTEMPTED TO VOID ON BSC AFTER BOLUS 1 L AND ENSURE JUICE AND 600 ML ORAL WATER AND NO RESULTS, 50 ML INC. IN PUREWICK. NEW ORDERS FOR DILT DRIP. CALL LIGHT IN REACH AND DENIES NEEDS- CONTINUES TO EAT SITTING IN CHAIR.
[2024-08-09] MEDS ORDERED: DILTIAZEM HCl/D5W 125 ML IV SCH (17:30)
[2024-08-09 17:54] LABS: ANION GAP 8.2 (7-21); BUN/CREATININE RATIO 18.18 (6.0-28.6); CALCIUM 8.9 mg/dL (8.5-10.1); CREATININE, SERUM 0.88 mg/dL (0.55-1.02); MAGNESIUM 1.7 mg/dL (1.8-2.4); POTASSIUM 4.2 mmol/L (3.5-5.1)
[2024-08-09] MEDS ORDERED: MAGNESIUM SULFATE 2 GM/50 ML BAG IV SCH (18:45)
--- NOTE | 2024-08-09 18:54 | NUR ---
in room with dr mari, pt inc of amt of urine 100 ml in attends, then purewick collected. ns bolus started per order and enc. oral fluids. pt has call light and is up in chair.
[2024-08-09] MEDS ORDERED: SODIUM CHLORIDE 0.9% 1,000 ML IV ONE (19:00)
--- NOTE | 2024-08-09 19:22 | NUR ---
here on unit - notified of pt convert to nsr hr 83 dilt drip stopped. he will enter new orders. finish bolus. pt watching tv, denies symptoms, call light in reach.
[2024-08-09 19:32] LABS: THYROXINE FREE 1.4 ng/dL (0.9-1.7)
[2024-08-09] MEDS ORDERED: dilTIAZem HCL 30 MG TAB PO SCH (20:00)
--- NOTE | 2024-08-09 20:09 | NUR ---
PATIENT ASKED TO RETURNT KEARA AT THIS TIME, ONE PERSON ASSIST WITH FWW, TOLERATED ACTIVITY WELL. SHE IS ALERT AND ORIENTED, HS MEDICATIONS PASSES AND ASSESSMENT COMPLETE. NO NEW CONCERNS.
[2024-08-10] VITALS (16 sets, daily range): BP systolic 102–131; BP diastolic 51–69
--- NOTE | 2024-08-10 00:07 | NUR ---
PATIENT NOTED TO BE COUGHING, THIS RN INTO ROOM TO CHECK ON PATIENT, SHE IS ALERT, SHE SAID, "IM OK, I JUST HAD A LITTLE TICKLE." PATIENT ASKED FOR TYLENOL FOR BACK PAIN 07/05. TYLENOL ADMINISTERED PRN AT THIS TIME. ASSESSMENT COMPLETE. NO NEW CONCERNS.
--- NOTE | 2024-08-10 01:33 | NUR ---
PATIENT OXYGEN DESATURATED TO MID UPPER 80' NOT SUSTAINED, AT THIS TIME PATIENT DROPPED TO 83% AND STAYED FOR GREATER THAN 5 SECOND, 2L OXYGEN PLACED PATIENT NOW 98% WHILE AWAKE.
[2024-08-10 05:29] LABS: BASOPHILS 0.5 % (0-2); EOSINOPHILS 6.1 % (0-6); HEMATOCRIT 29.7 % (35.0-50.0); HEMOGLOBIN 10.2 g/dL (12.0-18.0); LYMPHOCYTES 24.8 % (24-44); MCH 33.5 (27-36); MCHC 34.2 g/dl (30-36); MCV 98.1 fl (81-99); MONOCYTES 12.9 % (0-12); NEUTROPHILS 55.7 % (39-80); PLATELET COUNT 252 K/uL (140-440); RBC 3.03 M/ul (4.3-5.7); RDW 15.4 (10.5-15.0)
[2024-08-10 05:43] LABS: ALBUMIN 2.3 g/dL (3.4-5.0); ALBUMIN/GLOBULIN RATIO 0.74 (1.1-2.4); ANION GAP 7.8 (7-21); BILIRUBIN, TOTAL 0.4 mg/dL (0.2-1.0); BUN/CREATININE RATIO 14.86 (6.0-28.6); CALCIUM 8.2 mg/dL (8.5-10.1); CREATININE, SERUM 0.74 mg/dL (0.55-1.02); MAGNESIUM 2.2 mg/dL (1.8-2.4); POTASSIUM 3.8 mmol/L (3.5-5.1); PROTEIN, TOTAL 5.4 g/dL (6.4-8.2)
--- NOTE | 2024-08-10 06:13 | NUR ---
PATIENT RESTING IN BED EYES CLOSED, RESPIRATORY RATE 20/MIN. NO DISTRESS NOTED WHILE ROUDNING.
[2024-08-10] MEDS ORDERED: METOPROLOL TARTRATE 50 MG TAB PO SCH (07:30)
[2024-08-10] MEDS ORDERED: dilTIAZem HCL 180 MG CAPCR PO SCH (07:30)
--- NOTE | 2024-08-10 08:35 | NUR ---
PT NOTED TO BE IN AFIB WITH RATES 120'S - REPOSISTIONED UP IN BED TO EAT BREAKFAST, PT DENIES COMPLAINTS AT THIS TIME. PO MEDS ADMINISTERED WITHOUT DIFFICULTY. CALL LIGHT IN LAP.
--- NOTE | 2024-08-10 09:35 | NUR ---
RN ROUNDING ON PT - 50% BREAKFAST EATEN, SITTING UP IN BED AAO. PT CONVERTING IN AND OUT OF AFIB TO NSR. PT STATES SHE CAN FEEL "FLUTTERING IN HER CHEST" SOMETIMES WITH CONVERSION. SP02 REMAINS STABLE ON ROOM AIR.
[2024-08-10] MEDS ORDERED: LACTATED RINGER'S 1,000 ML IV ONE (09:45)
[2024-08-10] MEDS ORDERED: POLYETHYLENE GLYCOL 3350 1 PACKET PO ONE (10:00)
--- NOTE | 2024-08-10 10:35 | NUR ---
BOLUS STARTED PER EMAR. PT RESTING IN BED TALKING ON PHONE. REMAINS IN NSR WITH RATE 75 AT THIS TIME.
--- NOTE | 2024-08-10 10:49 | NUR ---
INTO SEE PATIENT. PATIENT RESTING IN BED. PATIENT STATES SHE HAD A HARD TIME FALLING ASLEEP BUT WAS ABLE TO. DENIES ANY CM NEEDS. WILL GO HOME WITH FAMILY AT TIME OF DISCHARGE. IMM LETTER COMPLETED.
--- NOTE | 2024-08-10 11:15 | NUR ---
1L BOLUS COMPLETE - PT SALINE LOCKED. PUREWIK IN PLACE, ATTENDS DRY.
--- NOTE | 2024-08-10 12:45 | NUR ---
Pt states she is finished with her lunch tray. She ate approximately 45% of her meal. Tray removed from room.
--- NOTE | 2024-08-10 13:00 | NUR ---
INCREASE BP SINCE BOLUS COMPLETE. ORTHOSTATIC BP NEGATIVE - PT DOES HOWEVER HAVE RIGHT LEG WEAKNESS WHEN ASSISTING AMBULATION TO COMMODE. USES FWW APPROPRIATLY. URINE OUTPUT POOR THIS SHIFT SO FAR, CONCENTRATED. VIOLA CARE AND PANUS CLEANED AND POWDER APPLIED, EDUCATION PROVIDED TO PT REGARDING HOME CARE OF THIS. PT NOW UP IN CHAIR RESTING WATCHING TV. ORAL CARE COMPLETE WITH CAR DISPATCHER ASSISTANCE. CALL LIGHT IN REACH.
[2024-08-10] MEDS ORDERED: POLYETHYLENE GLYCOL 3350 1 PACKET ONE (13:30)
--- NOTE | 2024-08-10 13:43 | NUR ---
MEDICAL UNDERWRITER SET UP EVERYTHING FOR PATIENT TO BRUSH HER TEETH, THEN HELPED CLEAN UP. CALL LIGHT WITH IN REACH AND NOTHING ELSE NEEDED AT THIS TIME.
--- NOTE | 2024-08-10 14:24 | NUR ---
MD UPDATED ON PT RESPONSE TO BOLUS AND POOR URINE OUTPUT.
--- NOTE | 2024-08-10 16:26 | NUR ---
PT/OT IN ROOM FOR SESSION - PT CONVERTS INTO AFIB WHILE AMBULATING IN ROOM WITH RATES 100'S. BP STABLE.
--- NOTE | 2024-08-10 17:12 | NUR ---
UPDATED BY TELEPHONE OF PERSISTANT AFIB WITH HR 120'S AT REST IN CHAIR. 10MG IV DILT PUSH ORDERED, ENTERED.
[2024-08-10] MEDS ORDERED: dilTIAZem HCL 25 MG/5 ML VIAL IV ONE (17:15)
--- NOTE | 2024-08-10 17:39 | NUR ---
PT SITTING UP IN CHAIR WATCHING TV WITHOUT DISTRESS - 10MG IV DILT PUSHED, HR REMAINS IN 120'S ON MONITOR WHILE ADMINISTERING. PT DENIES PAIN OR SOB. CALL LIGHT IN REACH.
--- NOTE | 2024-08-10 18:10 | NUR ---
MD UPDATED VIA TELEPHONE OF UNCHANGED RATE/RYHTHM AFTER DILT IV PUSH. ORDERS TO RESTART GTT RECEIVED. PT DENIES COMPLAINTS SITTING IN CHAIR. BP STABLE.
--- NOTE | 2024-08-10 18:27 | NUR ---
PT NOW IN SINUS RHYTHM ON MONITOR - HR 80.
--- NOTE | 2024-08-10 19:50 | NUR ---
PATIENT REQUESTED TO GO BACK TO BED FORM RECLINER, PATIENT TRANSFERED ONE PERSON ASSIST WITH FWW. PATIENT TOLERATED WELL. INCREASED RR TO 25/MIN, THEN TO 20/MIN WITH REST. ASSESSMENT COMPLETED, WASHED VIOLA AREA AND SKIN FOLDS APPLIED NYSTATIN POWDER PER ORDERS, NEW PUREWICK PLACED.
[2024-08-10] MEDS ORDERED: dilTIAZem HCL 30 MG TAB PO SCH (20:00)
--- NOTE | 2024-08-10 21:16 | NUR ---
TUNRED OFF DILT DRIP. PATIENT HEART RATE 67-75/MIN.
--- NOTE | 2024-08-10 22:32 | NUR ---
PATIENT DESATURATED TO 83% WHILE SLEEPING, THIS RN INTO PLACE 2L OXYGEN PER N.C., PATIENT NOTED TO BE URINATING VIA PUREWICK. RESPIRATORY THERAPIST BARBY NOTIFIED OF PATIENT NEED FOR OXYGEN.
[2024-08-11] VITALS (17 sets, daily range): BP systolic 90–128; BP diastolic 47–75
[2024-08-11 05:25] LABS: BASOPHILS 0.3 % (0-2); EOSINOPHILS 4.4 % (0-6); HEMATOCRIT 29.1 % (35.0-50.0); HEMOGLOBIN 9.9 g/dL (12.0-18.0); LYMPHOCYTES 21.2 % (24-44); MCH 33.5 (27-36); MCHC 34.1 g/dl (30-36); MCV 98.1 fl (81-99); MONOCYTES 11.9 % (0-12); NEUTROPHILS 62.2 % (39-80); PLATELET COUNT 242 K/uL (140-440); RBC 2.96 M/ul (4.3-5.7); RDW 15.1 (10.5-15.0)
[2024-08-11 05:34] LABS: BUN/CREATININE RATIO 13.51 (6.0-28.6); CALCIUM 8.5 mg/dL (8.5-10.1); CREATININE, SERUM 0.74 mg/dL (0.55-1.02); MAGNESIUM 1.8 mg/dL (1.8-2.4)
--- NOTE | 2024-08-11 09:17 | NUR ---
PT ATE BREAKFAST AND TOLERATED IT WELL. SITTING UP IN BED AND HAS NO C/O AT THIS TIME
--- NOTE | 2024-08-11 09:57 | NUR ---
BATH COMPLETED, PUREWIK CHANGED ALSO AT THIS TIME.
--- NOTE | 2024-08-11 10:49 | NUR ---
COMPLETED ORTHO VS AND PROVIDED COPY TO DR AT THIS TIME. THEN PT UP TO THE CHAIR FOR MEALS, PT ABLE TO AMBULATE WITH FFW, SLOW BUT MINIUNAL ASSISTANCE REQUIRED.
[2024-08-11] MEDS ORDERED: dilTIAZem HCL 30 MG TAB PO SCH (14:00)
--- NOTE | 2024-08-11 14:13 | NUR ---
patient education provided on a-fib and cardizem.
--- NOTE | 2024-08-11 15:07 | NUR ---
PT WANTS TO REMAIN UP IN THE CHAIR TILL ABOUT 8PM. AT THIS TIME PT APPERAS TO BE RESTING. EYES ARE CLOSED.
--- NOTE | 2024-08-11 15:55 | NUR ---
PT DENIES THE NEED TO VOID AT THIS TIME, PUREWICK REMAINS INPLACE AT THIS TIME.
--- NOTE | 2024-08-11 16:27 | NUR ---
NOTIFIED OF LOW URINE OUTPUT NEW ORDERS RECEIVED. LR IV BOLUS STARTED.
[2024-08-11] MEDS ORDERED: LACTATED RINGER'S 1,000 ML IV ONE (16:30)
--- NOTE | 2024-08-11 18:45 | NUR ---
PT HAD UNMEASURED VOID, INCET-URINE. PT REMAINS UP IN THE CHAIR, AND REPORT GIVEN TO NIGHT STAFF.
[2024-08-12] VITALS: BP 140/66
[2024-08-12 02:00] VITALS: BP 131/64
[2024-08-12 05:19] LABS: BASOPHILS 0.4 % (0-2); EOSINOPHILS 7.4 % (0-6); HEMATOCRIT 29.3 % (35.0-50.0); HEMOGLOBIN 9.9 g/dL (12.0-18.0); LYMPHOCYTES 27.4 % (24-44); MCH 33.2 (27-36); MCHC 33.9 g/dl (30-36); MONOCYTES 13.6 % (0-12); NEUTROPHILS 51.2 % (39-80); PLATELET COUNT 225 K/uL (140-440); RBC 2.99 M/ul (4.3-5.7); RDW 15.2 (10.5-15.0)
--- NOTE | 2024-08-12 05:27 | NUR ---
SHIFT SUMMARY Pt had an overall uneventful night. 1L O2 via NC for sleep. Vitally stable. HR irregular but SR. Rate controlled. No s/s of acute distress overnight.
[2024-08-12 05:29] LABS: BUN/CREATININE RATIO 12.98 (6.0-28.6); CALCIUM 8.4 mg/dL (8.5-10.1); CREATININE, SERUM 0.77 mg/dL (0.55-1.02); MAGNESIUM 1.7 mg/dL (1.8-2.4)
[2024-08-12 06:50] VITALS: BP 125/57
[2024-08-12] MEDS ORDERED: MAGNESIUM SULFATE 2 GM/50 ML BAG IV SCH (07:30)
[2024-08-12] MEDS ORDERED: dilTIAZem HCL 180 MG CAPCR PO SCH (07:30)
[2024-08-12 09:00] VITALS: BP 135/61
[2024-08-12] MEDS ORDERED: DILTIAZEM 24HR180 M1 PO (09:07)
--- NOTE | 2024-08-12 12:03 | NUR ---
DC HOME INSTRUCTIONS PROVIDED AND DISCUSSED WITH PT - ALL QUESTIONS ANSWERED. VS STABLE. PT DENIES COMPLAINTS. PT ASSISTED WITH DRESSING, CLEAN ATTENDS AND BED BATH PROVIDED PRIOR TO DRESSING. ALL BELONGINGS IN ROOM GATHERED.
[2024-08-12 12:05] VITALS: BP 110/53
== END 2024-08-12 12:20 | disposition home or self-care (01) | DRG 309 ==
LOC: ED 13:05 → CCU 16:38
PROVIDERS: Emergency Medicine; Student in an Organized Health Care Education/Training Program; ADMIT Student in an Organized Health Care Education/Training Program; ATTEND Student in an Organized Health Care Education/Training Program
DX: I48.91 Unspecified atrial fibrillation (principal); I50.32 Chronic diastolic (congestive) heart failure; I95.1 Orthostatic hypotension; E83.42 Hypomagnesemia; I10 Essential (primary) hypertension; E78.00 Pure hypercholesterolemia, unspecified; F32.9 Major depressive disorder, single episode, unspecified; Z66 Do not resuscitate; I36.1 Nonrheumatic tricuspid (valve) insufficiency; K21.9 Gastro-esophageal reflux disease without esophagitis; Z79.01 Long term (current) use of anticoagulants; Z79.899 Other long term (current) drug therapy; Z98.890 Other specified postprocedural states; Z90.710 Acquired absence of both cervix and uterus
CPT/HCPCS: 36415; 71045; 80048; 80053; 83735; 83880; 84439; 84443; 84484; 85025; 93005; 93010; 93306; 96365; 96366; 96375; 97162; 97166; 97530; 97535; 99285-25; A9270; J1938; J2405; J3475; J7030; J7121

== ENCOUNTER 2024-11-15 15:21 | Inpatient (IN) | payer MEDICARE ==
[~2024-11-15] VITALS: Ht 162.6 cm; Wt 87.4 kg
[~2024-11-15 15:21] MED LIST changes: +ACETAMINOPHEN500 M1 PO; +CULTURELLE CAP1 EAC1 PO; +DILTIAZEM 24HR180 M1 PO; +ELIQUIS5 MG PO; +FEROSUL325 MG PO; +IPRAT-ALBUT 0.5-3 ML INH; +LASIX40 MG PO; +METOPROLOL TART25 MG PO; +POTASSIUM CHLO20 ME2 PO
[2024-11-15 15:36] LABS: BASOPHILS 0.1 % (0.1-1.2); EOSINOPHILS 0.3 % (0.7-5.8); LYMPHOCYTES 19.1 % (19.3-51.7); MCH 33.1 PG (25.6-32.2); MCHC 32.5 g/dL (32.2-35.5); MCV 101.9 fL (79.4-94.8); MONOCYTES 8.0 % (4.7-12.5); NEUTROPHILS 72.2 % (34.0-71.1); RBC 3.17 M/uL (3.93-5.22)
[2024-11-15 15:54] LABS: ALT (SGPT) 14.0 U/L (14-59); AST (SGOT) 16.0 U/L (15-37); GLOMERULAR FILTRATION RATE,EST 49.0 mL/min (>60); PROTEIN, TOTAL 5.9 g/dL (6.4-8.2); UREA NITROGEN 29.0 mg/dL (7-18)
[2024-11-15] MEDS ORDERED: SODIUM CHLORIDE 0.9% 1,000 ML IV PRN (19:30)
[2024-11-15] MEDS ORDERED: ACETAMINOPHEN 325 MG TAB PO PRN (21:00)
[2024-11-15] MEDS ORDERED: LACTATED RINGER'S 1,000 ML IV SCH (21:00)
[2024-11-15] MEDS ORDERED: APIXABAN 5 MG TAB PO SCH (21:08)
[2024-11-16] VITALS (13 sets, daily range): BP systolic 96–125; BP diastolic 47–63
--- NOTE | 2024-11-16 02:05 | NUR ---
ROUNDED ON PATIENT, VS OBTAINED AND RECORDED, OUTPUT DOCUMENTED. PURWICK CHANGED, PERICARE COMPLETED. CALL LIGHT IN REACH, BED ALARM ON
--- NOTE | 2024-11-16 04:55 | NUR ---
ROUNDED ON PATIENT, NEW IVF BAG HUNG, VS OBTAINED AND RECORDED. INTAKE AND OUTPUT DOCUMENTED. PATIENT RESTING, RESPIRATIONS EVEN AND UNLABORED, SHE DENIES FURTHER NEEDS, CALL LIGHT IN REACH
[2024-11-16 05:34] LABS: BASOPHILS 0.3 % (0.1-1.2); EOSINOPHILS 3.8 % (0.7-5.8); LYMPHOCYTES 34.1 % (19.3-51.7); MCH 33.5 PG (25.6-32.2); MCHC 32.7 g/dL (32.2-35.5); MCV 102.4 fL (79.4-94.8); MONOCYTES 13.4 % (4.7-12.5); NEUTROPHILS 48.4 % (34.0-71.1); RBC 2.48 M/uL (3.93-5.22)
--- NOTE | 2024-11-16 05:40 | NUR ---
DAMARIS CHANGED, PERICARE PROVIDED, BRIEF CHANGED. PATIENT RESTING AND DENIES ANY NEEDS, CALL LIGHT IN REACH
[2024-11-16 05:58] LABS: ALT (SGPT) 13.0 U/L (14-59); AST (SGOT) 14.0 U/L (15-37); GLOMERULAR FILTRATION RATE,EST 72.0 mL/min (>60); PHOSPHORUS, INORGANIC 3.4 mg/dL (2.5-4.9); PROTEIN, TOTAL 4.7 g/dL (6.4-8.2); UREA NITROGEN 23.0 mg/dL (7-18)
--- NOTE | 2024-11-16 06:55 | NUR ---
ROUNDED ON PATIENT, PATIENT RESTING WITH EYES CLOSED, RESPIRATIONS EVEN AND UNLABORED. NO NEEDS IDENTIFIED, IVF CONTINUING TO INFUSE PER ORDER, CALL LIGHT IN REACH
--- NOTE | 2024-11-16 07:15 | NUR ---
RECEIVED REPORT FROM DEL MCCORMACK. JOAN RESTING IN BED WITH EYES CLOSED AND UNLABORED BREATHING. CALL LIGHT IN REACH.
--- NOTE | 2024-11-16 09:06 | NUR ---
PHYSICAL THERAPY AT THE BEDSIDE.
[2024-11-16] MEDS ORDERED: METOPROLOL TART25 MG PO (09:16)
[2024-11-16] MEDS ORDERED: CYCLOBENZAPRINE10 MG PO (09:16)
--- NOTE | 2024-11-16 09:59 | NUR ---
ALERT AND ORIENTED IN BED. LIVES IN HOUSE, 6 STEPS TO GET INSIDE. STATES SHE DOES OK WITH STEPS. HER GRANDDAUGHTER AND SPOUSE LIVE IN BASEMENT APARTMENT OF PATIENT'S HOME. STATES THEY SHARE MEALS TOGETHER. PATIENT HAS WALKER AND SHOWER CHAIR. STATES SHE HAS A NEW WALK IN SHOWER HER SONS HELPED HER REMODEL. PATIENT DOES NOT DRIVE, BUT HAS OTHER FAMILY/FRIENDS WHO ASSIST HER WITH TRANSPORTATION. STATES SHE HAS NO FINANCIAL CONCERNS WITH PAYING FOR UTILITES, FOOD OR MEDICATIONS. DOES PLAN ON RETURNING HOME WHEN MEDICALLY READY. NO KNOWN CM NEEDS AT THIS TIME.
--- NOTE | 2024-11-16 10:04 | NUR ---
UR CLINICAL REVIEW: 2 MN YEN, MEETS OBS FOR ORTHOSTATIC HYPOTENSION AND AFIB IV FLUIDS, CARDIAC MONITORING, PT/OT EVALUATION, BPS 100-130/58-86, TACHYPNEIC, AFIB WITH RVR IN ER MEDICARE OBS 11/15/2024 @ 2101 ORDER MATCHES REG NO AUTH REQUIRED PER MEDICARE RULES DC TO HOME WITH FAMILY WHEN MEDICALLY READY.
--- NOTE | 2024-11-16 10:16 | NUR ---
PATIENT IS IN BED AT THIS TIME, BAG WASHER'S CAHRTED VITALS AND I&O'S, CALL LIGHT WITH IN REACH AND NOTHING ELSE NEEDED AT THIS TIME.
[2024-11-16] MEDS ORDERED: PHARMACY RENAL DOSE ADJUSTMENT 1 DOSE MISC PO SCH (12:00)
[2024-11-16] MEDS ORDERED: CALCIUM 600 MG1 EA11 PO (12:35)
[2024-11-16] MEDS ORDERED: TURMERIC500 M2 PO (12:36)
[2024-11-16] MEDS ORDERED: AMITRIPTYLINE H10 MG PO (12:36)
[2024-11-16] MEDS ORDERED: ADULT LOW DOSE81 MG PO (12:36)
--- NOTE | 2024-11-16 12:37 | NUR ---
MED REC COMPLETE
--- NOTE | 2024-11-16 14:35 | NUR ---
PATIENT IS SITTING IN CHAIR WITH CALL LIGHT IN REACH. VICE PRESIDENT REGULATORY CHARTED VITALS AND I&O'S. PATIENT HAS NO FURTHER NEEDS AT THIS TIME.
--- NOTE | 2024-11-16 15:02 | NUR ---
PT WORKING WITH OCCUPATIONAL THERAPY AT THIS TIME. OT REPORTS TO THIS RN THAT BP LOWERED SIGNIFICANTLY AGAIN WITH AMBULATION. PT UP TO CHAIR AT THIS TIME, STATES NO CURRENT NEEDS, CALL LIGHT WITHIN REACH.
[2024-11-16] MEDS ORDERED: LACTATED RINGER'S 1,000 ML IV ONE (17:00)
[2024-11-16] MEDS ORDERED: METOPROLOL TARTRATE 25 MG TAB PO PRN (17:00)
--- NOTE | 2024-11-16 18:26 | NUR ---
PATIENT WAS IN HER CHAIR, DARRIUS'Arline COMER AND JESSICA ASSISTED PATIENT BACK TO BED, CHANGED HER PUREWICK AND BREIF, CHARTED VITALS AND I&O'S, CALL LIGHT WITH IN REACH AND NOTHING ELSE NEEDED AT THIS TIME.
--- NOTE | 2024-11-16 20:43 | NUR ---
PATIENTS VITALS DONE. PATIENT HAS WATER AT BEDSIDE ALONG WITH PHONE AND GLASSES. IV FLUIDS RUNNING. VITALS WNL. LIGHTS TURNED DOWN. WARM BLANKET GIVEN.
[2024-11-16] MEDS ORDERED: METOPROLOL TARTRATE 25 MG TAB PO SCH (21:00)
[2024-11-16] MEDS ORDERED: ASPIRIN 81 MG TABEC PO SCH (21:00)
--- NOTE | 2024-11-16 21:40 | NUR ---
pt awakens easily, on room air, lungs clear dim at bases cleared with CDB. repositions self in bed, HOB elevated to comofrt. abd soft, stated LBM 11/14. purewick in place, draining dark yellow urine. IVf infusing w/o problems. no c/o pain, Tele#[address] afib reading. no c/o SOB. Pleasant and cooperative
--- NOTE | 2024-11-16 23:05 | EKG ---
[facility] [address] [place] [address] Signed Atrial fibrillation with rapid ventricular response Minimal voltage criteria for LVH, may be normal variant ( Lytton product ) Anteroseptal infarct (cited on or before 02-MAR-2016) ST \T\ T wave abnormality, consider lateral ischemia Abnormal ECG When compared with ECG of 07-AUG-2024 13:06, No significant change was found Confirmed by David Ortega MD () on 11/16/2024 11:05:40 PM Electronically Signed By: DAVID ORTEGA MD 11/16/24 2305 PATIENT NAME: JOAN MCINTOSH Electrocardiogram DATE OF : 39 PHYSICIAN: DAVID ORTEGA MD REPORT #: [id number] REPORT IS CONFIDENTIAL AND NOT TO BE RELEASED WITHOUT AUTHORIZATION
--- NOTE | 2024-11-16 23:11 | NUR ---
CALL LIGHT ANSWERED. PT NEEDED TO USE BATHROOM. BODY TECHNICIAN/PAINTER 1PA WITH FWW TO BSC. PT HAD MEDIUM BM AND ASSISTED BACK TO BED. NEW PUREWICK PLACED. PT STATES NO FURTHER NEEDS AT THIS TIME. CALL LIGHT WITHIN REACH.
--- NOTE | 2024-11-16 23:15 | NUR ---
awake, used call light, up to BSC, had a large formed [id number] colored bm. purewick changed at this time too. clean attends in place. cooperative, tolerated well, back to bed. IVF infusing w/o problems. Pleasnt and cooperative, tele in place
[2024-11-17] VITALS (11 sets, daily range): BP systolic 12–123; BP diastolic 54–67
[2024-11-17 05:47] LABS: BASOPHILS 0.3 % (0.1-1.2); EOSINOPHILS 2.3 % (0.7-5.8); LYMPHOCYTES 23.8 % (19.3-51.7); MCH 33.2 PG (25.6-32.2); MCHC 32.8 g/dL (32.2-35.5); MCV 101.3 fL (79.4-94.8); MONOCYTES 11.1 % (4.7-12.5); NEUTROPHILS 62.2 % (34.0-71.1); RBC 2.38 M/uL (3.93-5.22)
[2024-11-17 06:12] LABS: ALT (SGPT) 13.0 U/L (14-59); AST (SGOT) 11.0 U/L (15-37); GLOMERULAR FILTRATION RATE,EST 89.0 mL/min (>60); PROTEIN, TOTAL 4.3 g/dL (6.4-8.2); UREA NITROGEN 22.0 mg/dL (7-18)
--- NOTE | 2024-11-17 06:29 | NUR ---
resting, awakens easily, no c/o pain or lightheadness, IVF infusing w/o problems. goes back to sleep. tele#[address] SR rhythm at this time
--- NOTE | 2024-11-17 07:25 | NUR ---
RECIEVED REPORT FROM DEL WARD. PT RESTING IN BED WITH EYES CLOSED, BREATHING EVEN AND UNLABORED. CALL LIGHT WITHIN REACH.
[2024-11-17] MEDS ORDERED: CITALOPRAM HYDROBROMIDE 20 MG TAB PO SCH (09:00)
[2024-11-17] MEDS ORDERED: ARIPiprazole 5 MG TAB PO SCH (09:00)
[2024-11-17] MEDS ORDERED: PANTOPRAZOLE SODIUM 40 MG TABEC PO SCH (09:00)
--- NOTE | 2024-11-17 11:25 | NUR ---
PHYSICAL THERAPY WORKING WITH PT.
[2024-11-17] MEDS ORDERED: MAGNESIUM SULFATE 2 GM/50 ML BAG IV ONE (11:45)
--- NOTE | 2024-11-17 12:45 | NUR ---
IV PUMP ALARMING FOR OCCLUSION, IV WNL. PT INSTRUCTED TO STRAIGHTEN ARM. PT STATES NO FURTHER NEEDS AT THIS TIME, VISITING WITH FAMILY AT THE BEDSIDE. CALL LIGHT WITHIN REACH.
--- NOTE | 2024-11-17 16:40 | NUR ---
PT VISITING WITH DAUGHTER AT THE BEDSIDE.
--- NOTE | 2024-11-17 19:33 | NUR ---
Pt awake, on room air, no c/o pain. watching tv and atalking in phone with family. no c/o pain. IVF infusing w/o problems.
--- NOTE | 2024-11-17 21:48 | NUR ---
VERBAL CLARIFICATION W DR ORTEGA OF TELE ORDERS, TELE#[address]
--- NOTE | 2024-11-17 23:00 | NUR ---
PATIENT LAYING IN BED. PATIENT WAS ASSISTED WITH FWW TO BSC. PATIENT BRIEF WAS CHANGED. PATIENTS CALL LIGHT IS WITHIN REACH AND NO FURTHER NEEDS AT THIS TIME.
--- NOTE | 2024-11-17 23:11 | EKG ---
[facility] [address] [facility] [place] [address] Signed Sinus tachycardia Nonspecific intraventricular block Cannot rule out Anteroseptal infarct (cited on or before 02-MAR-2016) Abnormal ECG When compared with ECG of 15-NOV-2024 15:30, Sinus rhythm has replaced Atrial fibrillation Confirmed by David Ortega MD () on 11/17/2024 11:10:49 PM Electronically Signed By: DAVID ORTEGA MD 11/17/24 2311 PATIENT NAME: JOAN MCINTOSHBETH Electrocardiogram DATE OF : 39 PHYSICIAN: DAVID ORTEGA MD REPORT #: [id number] REPORT IS CONFIDENTIAL AND NOT TO BE RELEASED WITHOUT AUTHORIZATION
[2024-11-18] VITALS (8 sets, daily range): BP systolic 101–136; BP diastolic 50–63
--- NOTE | 2024-11-18 00:55 | NUR ---
Resting, eyes closed, tele#[address] SR w SVPB's, no resp distress. IVF infusing w/o problems. Pure wick in place draining dark yellow urine.
--- NOTE | 2024-11-18 01:38 | NUR ---
PATIENT LAYING IN BED. PUREWICK WAS CHANGED. PATIENTS VITAL SIGNS AND I&OS WERE DONE. CALL LIGHT IS WITHIN REACH AND NO FURTHER NEEDS AT THIS TIME.
--- NOTE | 2024-11-18 03:58 | NUR ---
Resting, eyes closed, no s/sx distress. IVF infusing w/o problems. Tele#[address] SR at this time
--- NOTE | 2024-11-18 05:20 | NUR ---
Awakens easily, on room air, IVF infusing w/o problems. Tele#[address] SR at this time. Pt denies CP or SOB. Pure wick in place draining QS cloudy dark yellow urine. No c/o pain. Cooperative with vitals and labs
[2024-11-18 05:37] LABS: BASOPHILS 0.3 % (0.1-1.2); EOSINOPHILS 2.6 % (0.7-5.8); LYMPHOCYTES 22.0 % (19.3-51.7); MCH 32.9 PG (25.6-32.2); MCHC 32.0 g/dL (32.2-35.5); MCV 102.7 fL (79.4-94.8); MONOCYTES 10.9 % (4.7-12.5); NEUTROPHILS 63.9 % (34.0-71.1); RBC 2.19 M/uL (3.93-5.22)
[2024-11-18 05:53] LABS: ALT (SGPT) 11.0 U/L (14-59); AST (SGOT) 12.0 U/L (15-37); GLOMERULAR FILTRATION RATE,EST 88.0 mL/min (>60); PROTEIN, TOTAL 4.3 g/dL (6.4-8.2); UREA NITROGEN 23.0 mg/dL (7-18)
--- NOTE | 2024-11-18 07:10 | NUR ---
RECIEVED REPORT FROM DEL WARD. PT RESTING IN BED WITH EYES CLOSED, BREATHING EVEN AND UNLABORED. CALL LIGHT WITHIN REACH.
--- NOTE | 2024-11-18 08:30 | NUR ---
PT AWAKE IN BED, STATES NO CURRENT NEEDS, CALL LIGHT WITHIN REACH.
[2024-11-18] MEDS ORDERED: MAGNESIUM SULFATE 2 GM/50 ML BAG IV ONE (09:00)
--- NOTE | 2024-11-18 09:15 | NUR ---
PT LYING IN BED, STATES SHE IS HAVING MILD SOB, LUNG SOUNDS WITH EXPIRATORY WHEEZE IN ALL LOBES. I.S. DEVICE GIVEN TO PT AND PT EDUCATED ON USE, PT USES DEVICE W/O DIFFICULTY, VERBALIZES UNDERSTANDING OF FREQUENCY OF USE. PHYSICAL THERAPY TO THE BEDSIDE. PUREWICK REMOVED, PT STANDS, FRESH DEPENDS IN PLACE. PT AMBULATES TO [facility] WITH 1PA AND FWW. PT HAS SMALL, DARK BM AT THIS TIME. PT CLEANED BY RN. PT CONTINUES TO WORK WITH PHYSICAL THERAPY AT THIS TIME. CALL LIGHT WITHIN REACH.
--- NOTE | 2024-11-18 12:03 | NUR ---
PT UP TO BSC WITH SBA AND FWW. DEPENDS DRY AT THIS TIME. PT REQUESTS PRIVACY, CALL LIGHT WITHIN REACH.
--- NOTE | 2024-11-18 12:08 | NUR ---
PT BACK UP TO CHAIR FROM BSC WITH SBA AND FWW. PT STATES NO CURRENT NEEDS, CALL LIGHT WITHIN REACH.
[2024-11-18 13:03] LABS: BASOPHILS 0 % (0.1-1.2); EOSINOPHILS 2.0 % (0.7-5.8); LYMPHOCYTES 13.9 % (19.3-51.7); MCH 32.9 PG (25.6-32.2); MCHC 31.9 g/dL (32.2-35.5); MCV 103.3 fL (79.4-94.8); MONOCYTES 8.9 % (4.7-12.5); NEUTROPHILS 74.8 % (34.0-71.1); RBC 2.46 M/uL (3.93-5.22)
--- NOTE | 2024-11-18 13:19 | NUR ---
HOURLY ROUNDING. PATIENT SITTING IN RECLINER CHAIR, WATER CUP HAS BEEN FILLED WITH ICE. CALL LIGHT PLACED WITHIN REACH. NO FURTHER REQUEST FROM PATIENT AT THIS TIME
--- NOTE | 2024-11-18 13:27 | NUR ---
In with pt for IVP alarm infusion complete. Pt sitting up in the chair, brushing her hair. Added 50ml to volume to be infused and updated primary RN.
--- NOTE | 2024-11-18 13:35 | NUR ---
PT UP TO CHAIR, STATES NO CURRENT NEEDS, CALL LIGHT WITHIN REACH.
--- NOTE | 2024-11-19 07:33 | NUR ---
REFERRAL SENT TO [facility]
== END 2024-11-18 14:45 | disposition home health service (06) | DRG 312 ==
LOC: ED 15:21 → MS 15:23
PROVIDERS: Emergency Medicine; ADMIT Family Medicine; ATTEND Family Medicine
DX: I95.1 Orthostatic hypotension (principal); I48.91 Unspecified atrial fibrillation; K21.9 Gastro-esophageal reflux disease without esophagitis; K44.9 Diaphragmatic hernia without obstruction or gangrene; I10 Essential (primary) hypertension; E78.00 Pure hypercholesterolemia, unspecified; F32.A Depression, unspecified; D53.9 Nutritional anemia, unspecified; Z79.01 Long term (current) use of anticoagulants
CPT/HCPCS: 36415; 71045; 80053; 83735; 84100; 84484; 85025; 93005; 93010; 96360; 96361; 97110; 97116; 97162; 97166; 97530; 99285-25; A9270; G0378; J3475; J7121